=== PATIENT | male | born 1970 | race Caucasian/White ===

== ENCOUNTER 2024-03-20 14:20 | Emergency (ER) | payer OTHER ==
[~2024-03-20] VITALS: Ht 180.3 cm; Wt 79.8 kg
[2024-03-20 14:23] VITALS: BP 145/72; PULSE 77; RESP 16; TEMP 98.2; O2SAT 98
[2024-03-20] MEDS: IBUPROFEN 600 MG TAB PO ONE (15:05)
[2024-03-20] MEDS: ACETAMINOPHEN EXTRA STRENGTH 500 MG TAB PO ONE (15:05)
[2024-03-20] MEDS ORDERED: NAPR-337 PO (15:52)
[2024-03-20 16:27] VITALS: BP 144/94; PULSE 65; RESP 20; TEMP 98; O2SAT 100
== END 2024-03-20 16:27 | disposition home or self-care (01) ==
LOC: MED 14:20
DX: S83.91XA Sprain of unspecified site of right knee, initial encounter (principal); E11.9 Type 2 diabetes mellitus without complications; Z79.899 Other long term (current) drug therapy; W01.0XXA Fall on same level from slipping, tripping and stumbling without subsequent striking against object, initial encounter; Y93.89 Activity, other specified; Y92.89 Other specified places as the place of occurrence of the external cause; Y99.8 Other external cause status
CPT/HCPCS: 73562; 99283